=== PATIENT | female | born 1955 | race Caucasian/White ===

== ENCOUNTER 2019-07-16 15:10 | Emergency (ER) | payer OTHER ==
[2019-07-16] MEDS ORDERED: LORazepam 2 MG/ML VIAL ONE (15:28)
[2019-07-16] MEDS ORDERED: HALOPERIDOL LACT 5 MG/ML INJ ONE (15:28)
[2019-07-16] MEDS ORDERED: NA CHLORIDE 0.9% 1,000 ML ONE (16:02)
[2019-07-16 16:14] LABS: Barbiturates NEGATIVE (NEGATIVE); Benzodiazepines NEGATIVE (NEGATIVE); Cocaine NEGATIVE (NEGATIVE); METHAMPHETAM NEGATIVE (NEGATIVE); Methadone NEGATIVE (NEGATIVE); Opiates NEGATIVE (NEGATIVE); Phencyclidine NEGATIVE (NEGATIVE); THC Cannibis NEGATIVE (NEGATIVE)
[2019-07-16 16:17] LABS: Absolute Lymphocytes (CBC) 2.1 K/uL (0.7-4.9); Basophils % 1.1 % (0-1.3); Hematocrit 39.2 % (36.0-45.0); Lymphocytes % 27.3 % (15.3-44.8); MPV 9.7 fL (7.6-11.3); RBC Red Blood Cell Count 4.38 M/uL (3.86-4.86)
[2019-07-16 16:41] LABS: ALT/SGPT 30 U/L (12-78); AST/SGOT 16 U/L (15-37); Alkaline Phosphatase 128 U/L (45-117); BUN Blood Urea Nitrogen 5 mg/dL (7-18); Bicarbonate 21 mmol/L (21-32); Bilirubin Direct < 0.1 mg/dL (0-0.2); Bilirubin Total 0.3 mg/dL (0.2-1.0); Glucose Level 153 mg/dL (74-106); Potassium 3.4 mmol/L (3.5-5.1); Protein, Total 8.2 g/dL (6.4-8.2); Sodium Level 137 mmol/L (136-145)
[2019-07-16] MEDS ORDERED: NS KCL 20MEQ 1,000 ML IV ONE (17:28)
[2019-07-16 20:44] LABS: Urine Blood NEGATIVE (NEG); Urine Glucose NEGATIVE (NEG); Urine Protein TRACE (NEG)
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
--- NOTE | 2019-07-16 23:29 | EDPHYS ---
Physician Documentation [facility] Name: Enid Jolley Age: 63 yrs Sex: Female : 1955 Arrival Date: 07/16/2019 Time: 15:23 Bed 15 Private MD: ED Physician Emory Jerry HPI: 07/16 16:27 This 63 yrs old Female presents to ER via EMS with complaints of Altered jr8 Mental Status, Psych Problem. 16:27 Onset: The symptoms/episode began/occurred gradually, 2 week(s) ago. Associated signs jr8 and symptoms: The patient has no apparent associated signs or symptoms. Current symptoms: In the emergency department the patient's symptoms have improved. Patient's baseline: Neuro: alert and fully oriented, Motor: no deficits, Ambulation: walks without assistance, Speech: normal. The patient has experienced similar episodes in the past, several times. The patient has not recently seen a physician. Patient with known psych history. Per EMS and police, family stated that patient has been in and out of psych hospitals for a long time. Has been off of her medication for several months and now having an abrupt decline in mental state. Has been increasingly argumentative and now to the point where she is seeing and hearing voices along with becoming abusive along with having suicidal thoughts. Patient was very argumentative today and aggressive on scene. Required Ketamine IM. Upon arrival patient much more calm . Historical: - Allergies: 15:33 No Known Allergies; hb - Immunization history:: Adult Immunizations unknown. - Social history:: Smoking status: unknown. - Ebola Screening: : Patient negative for fever greater than or equal to 101.5 degrees Fahrenheit, and additional compatible Ebola Virus Disease symptoms Patient denies exposure to infectious person. ROS: 16:27 Unable to obtain ROS due to sedated and cannot answer or follow commands . jr8 Exam: 16:27 Eyes: Pupils equal round and reactive to light, extra-ocular motions intact. Lids and jr8 lashes normal. Conjunctiva and sclera are non-icteric and not injected. Cornea within normal limits. Periorbital areas with no swelling, redness, or edema. ENT: Nares patent. No nasal discharge, no septal abnormalities noted. Tympanic membranes are normal and external auditory canals are clear. Oropharynx with no redness, swelling, or masses, exudates, or evidence of obstruction, uvula midline. Mucous membranes moist. Neck: Trachea midline, no thyromegaly or masses palpated, and no cervical lymphadenopathy. Supple, full range of motion without nuchal rigidity. No Meningismus. Cardiovascular: Regular rate and rhythm with a normal S1 and S2. No gallops, murmurs, or rubs. Normal PMI, no JVD. No pulse deficits. Respiratory: Lungs have equal breath sounds bilaterally, clear to auscultation and percussion. No rales, rhonchi or wheezes noted. No increased work of breathing, no retractions or nasal flaring. Abdomen/GI: Soft with normal bowel sounds. No distension or tympany. No guarding or rebound. No evidence of tenderness throughout. Skin: Warm, dry with normal turgor. Normal color with no rashes, no lesions, and no evidence of cellulitis. MS/ Extremity: Pulses equal, no cyanosis. Neurovascular intact. Full, normal range of motion. 16:27 Neuro: Orientation: Not oriented to person, place, time, situation, Mentation: slow to respond, confused, unable to follow commands, Memory: unable to test, Cranial nerves: right lateral nystagmus, left lateral nystagmus, Motor: moves all fours, Sensation: no obvious gross deficits, Gait: not tested. seizure activity, is not displayed by the patient, Abnormal movements: there are no abnormal movements. Vital Signs: 15:33 BP 144 / 102; Pulse 130; Resp 14; Temp 97.8; Pulse Ox 98% on R/A; Weight 80 kg; Pain hb 0/10; 16:30 BP 105 / 77; Pulse 109; Resp 19; Pulse Ox 99% on R/A; sg 17:18 BP 106 / 65; Pulse 94; Resp 18; Pulse Ox 99% ; sg 18:44 BP 106 / 78; Pulse 109; Resp 23; Pulse Ox 100% on R/A; hb 19:43 BP 99 / 75; Pulse 98; Resp 22; Pulse Ox 98% on R/A; aa1 20:00 BP 124 / 77; Pulse 96; Resp 22; Temp 97.4(O); Pulse Ox 99% ; ms1 21:00 BP 131 / 77; Pulse 92; Resp 20; Pulse Ox 98% on R/A; Pain 0/10; aa1 22:00 BP 141 / 91; Pulse 109 MON; Resp 21; Pulse Ox 100% ; ms1 23:30 BP 144 / 81; Pulse 109; Resp 20; Temp 98(O); Pulse Ox 99% ; Pain 0/10; ms1 11 01:00 BP 133 / 85; Pulse 95; Resp 18; Temp 98(O); Pulse Ox 99% ; ms1 02:29 BP 127 / 92; Pulse 114; Resp 16 S; Pulse Ox 100% on R/A; bb 07/16 15:33 Lorenz-Tovar (FACES) hb Dahlgren Coma Score: 07/16 16:27 Eye Response: to voice(3). Verbal Response: incomprehensible(2). Motor Response: jr8 localizes pain(5). Total: 10. MDM: 15:31 Patient medically screened. jr8 23:22 Data reviewed: vital signs, nurses notes, lab test result(s), EKG. Data interpreted: jr8 Pulse oximetry: on room air is 100 %. Interpretation: normal. Counseling: I had a detailed discussion with the patient and/or guardian regarding: the historical points, exam findings, and any diagnostic results supporting the discharge/admit diagnosis, lab results, the need to transfer to another facility, [facility] does not immediately have the required specialist. ED course: Patient doing much better. Able to coherently talk now and knows where she is. Still being transferred to psych facility for medication management and further psychiatric stabilization. ED course: Dr. Wilson accepted patient at [facility] . 07/16 15:31 Order name: Acetaminophen; Complete Time: 16:45 07/16 15:31 Order name: Basic Metabolic Panel; Complete Time: 16:45 07/16 15:31 Order name: CBC with Diff; Complete Time: 16:19 07/16 15:31 Order name: ETOH Level; Complete Time: 16:41 07/16 15:31 Order name: Hepatic Function; Complete Time: 16:45 07/16 15:31 Order name: Salicylate; Complete Time: 16:36 07/16 15:31 Order name: Urine Drug Screen; Complete Time: 16:19 07/16 16:09 Order name: Urine Dipstick--Ancillary (enter results); Complete Time: 20:47 eb 07/16 15:31 Order name: EKG; Complete Time: 15:32 [facility] 07/16 15:31 Order name: EKG - Nurse/Tech; Complete Time: 17:42 [facility] 07/16 15:31 Order name: IV Saline Lock; Complete Time: 17:01 [facility] 07/16 15:31 Order name: Labs collected and sent; Complete Time: 17:01 [facility] 07/16 15:31 Order name: Urine Dipstick-Ancillary (obtain specimen); Complete Time: 17: [facility] 07/16 17:01 Order name: Straight Cath; Complete Time: 17:01 Administered Medications: 15:50 Drug: Ativan 2 mg Route: IVP; Site: right hand; 16:10 Follow up: Response: No adverse reaction 15:50 Drug: HALdol 2 mg Route: IVP; Site: right hand; 16:10 Follow up: Response: No adverse reaction 16:20 Drug: NS 0.9% 1000 ml Route: IV; Rate: 1000 ml; Site: right hand; 07/17 02:28 Follow up: Response: No adverse reaction; IV Status: Completed infusion 07/16 17:20 Drug: NS 0.9% with KCl 20 mEq/L 1000 ml Route: IV; Rate: calculated rate; Site: right hand; 07/17 02:28 Follow up: Response: No adverse reaction; IV Status: Completed infusion Disposition: 16:45 Co-signature as Attending Physician, Emory Jerry MD. ma2 Disposition: 07/16/19 23:25 Transfer ordered to [facility]. Diagnosis are Suicidal ideations, Schizophrenia. - Reason for transfer: Higher level of care. - Accepting physician is Dr. Wilson. - Condition is Stable. - Problem is new. - Symptoms have improved. Signatures: Dispatcher [employer] EDMS Anthony Santos RN BG sg Eve David RN BG bb Ayo Barrett PA PA jr8 Rowena Wylie RN RN Kirk Wooten Emory Jerry MD MD ma2 Corrections: (The following items were deleted from the chart) 07/16 19:38 15:32 PROTIME (+INR)+COAG.LAB.BRZ ordered. EDMS EDMS 19:38 15:32 PTT, ACTIVATED+COAG.LAB.BRZ ordered. EDMS EDMS 23:27 23:22 ED course: Dr[facility] . jr8 jr8 07/17 02:30 07/16 23:25 07/16/2019 23:25 Transfer ordered to Psych Facility. Diagnosis is Suicidal bb ideations; Schizophrenia. Reason for transfer: Higher level of care. Accepting physician is Dr. Wilson. Condition is Stable. Problem is new. Symptoms have improved. jr8
[2019-07-17 03:48] VITALS: TEMP 98
[2019-07-17 03:50] VITALS: BP 127/92; O2SAT 100
--- NOTE | 2019-07-17 08:39 | EKG ---
Test Date: 2019-07-16 Test Time: 17:38:12 [employer]unch Press Feeder: HB MEASUREMENT RESULTS: Intervals: Rate: 117 NC: 120 QRSD: 70 QT: 346 QTc: 482 Embarrass: P: 49 NC: 120 QRS: 54 T: 98 INTERPRETIVE STATEMENTS: Sinus tachycardia Otherwise normal ECG Compared to ECG 07/27/2013 16:33:12 Sinus rhythm no longer present Electronically Signed On 07-17-19 08:37:45 MANUFACTURING CHIEF ENGINEER by Edgar Melton
== END 2019-07-17 02:30 ==
LOC: ER 15:10
DX: R45.851 Suicidal ideations (principal); F20.9 Schizophrenia, unspecified
CPT/HCPCS: 96361; 93005; 85025; 80048; 36415; 80320; 80329 ×2; 80076; 80307 ×8; 81003; 96375; 96374; 99285; J1630; J7030